=== PATIENT | male | born 1975 | race Caucasian/White ===

== ENCOUNTER 2020-01-11 13:05 | Emergency (ER) | payer BC ==
[~2020-01-11] VITALS: Ht 175.3 cm; Wt 87.5 kg
[2020-01-11 13:23] VITALS: BP 157/85; Ht 175.3 cm; Wt 87.5 kg
== END 2020-01-11 14:10 | disposition home or self-care (01) ==
LOC: ED 13:05
DX: S42.002A Fracture of unspecified part of left clavicle, initial encounter for closed fracture (principal); V87.8XXA Person injured in other specified noncollision transport accidents involving motor vehicle (traffic), initial encounter; Y93.55 Activity, bike riding; Y92.413 State road as the place of occurrence of the external cause; Y99.8 Other external cause status
CPT/HCPCS: Q0092